=== PATIENT | female | born 1955 | race Caucasian/White ===

== ENCOUNTER 2017-07-15 10:55 | Outpatient (CLI) | payer BC | END 2017-07-15 10:56 | disposition home or self-care (01) | LOC: BICMAMMO 10:55 | PROVIDERS: ATTEND Nurse Practitioner Family | DX: Z12.31 Encounter for screening mammogram for malignant neoplasm of breast (principal); Z80.3 Family history of malignant neoplasm of breast | CPT/HCPCS: 77063; 77067 ==

== ENCOUNTER 2018-05-02 12:30 | Outpatient (CLI) | payer BC ==
--- NOTE | 2018-05-02 13:34 | CT ---
CT BRAIN WITH AND WITHOUT IV CONTRAST: HISTORY: Dysphonia. Slurred speech. COMPARISON: Noncontrasted exam from 05/29/2013. FINDINGS: An old lacunar infarction at the inferior aspect of the left basal ganglia is again seen. No evidenc e of acute infarct, hemorrhage, mass, midline shift, or abnormal extraaxial fluid collections is seen . The ventricular size is normal, and the basilar cisterns are patent. No abnormal post contrast en hancement is noted. The bony calvarium is intact. The visualized paranasal sinuses and mastoid air cells are well aerated. IMPRESSION: No CT evidence of acute intracranial process or mass. POS: OFF
[2018-05-02] MEDS ORDERED: ISOVUE-370 76%-LOCM 1 ML ONE (13:44)
== END 2018-05-02 12:31 | disposition home or self-care (01) ==
LOC: CT 12:30 → BICCT 12:31
PROVIDERS: ATTEND Specialist
DX: R49.0 Dysphonia (principal)
CPT/HCPCS: 70470; Q9966

== ENCOUNTER 2018-06-12 10:51 | Observation (INO) | payer BC ==
[2018-06-12 11:56] VITALS: BMI 36.2
[2018-06-12 12:11] LABS: #Eosinphils 0.2 thou/uL (0.0-0.7); #Lymphocytes 1.9 thou/uL (1.20-3.40); #Monocytes 0.4 thou/uL (0.11-0.59); #Neutrophils 4.8 thou/uL (1.40-6.50); %Basophils 0.3 % (0.0-1.0); %Eosinophils 2.6 % (0.0-10.0); %Lymphocytes 25.7 % (21.0-51.0); %Neutrophils 65.4 % (42.0-75.0); Mean Corpuscular HGB CONC 32.4 g/dL (32.0-36.0); Mean Corpuscular Hemoglobin 28.6 pg (27.0-31.0); Mean Corpuscular Volume 88.3 fL (78.0-98.0); Mean Platelet Volume 7.7 fL (7.4-10.4); Platelet Count 299 thou/uL (130-400); RBC Distribution Width 12.9 % (11.5-14.5); White Blood Cell (WBC) Count 7.4 thou/uL (4.8-10.8)
[2018-06-12] MEDS ORDERED: Aspirin Chewable 81 MG TAB PO SCH (12:45)
[2018-06-12 12:46] LABS: ALT (SGPT) 19 U/L (8-55); AST (SGOT) 24 U/L (5-34); Albumin 4.1 g/dL (3.4-4.8); Alkaline Phosphatase 83 U/L (40-150); Anion Gap 14 mmol/L (10-20); BUN (Urea Nitrogen) 15 mg/dL (9.8-20.1); Bilirubin, Total 0.4 mg/dL (0.2-1.2); Calc. Creatinine Clearance 105 mL/min (70-130); Calcium 9.5 mg/dL (7.8-10.44); Carbon Dioxide 24 mmol/L (23-31); Chloride 103 mmol/L (98-107); Estimated GFR-MDRD 75; Globulin 2.6 g/dL (2.4-3.5); Glucose 102 mg/dL (80-115); Potassium 4.2 mmol/L (3.5-5.1); Protein, Total 6.7 g/dL (6.0-8.3); Sodium 137 mmol/L (136-145)
[2018-06-12] MEDS ORDERED: Nitroglycerin 0.4 MG TAB (25 Tab Bottle) SL PRN (12:46)
--- NOTE | 2018-06-12 13:04 | RAD ---
2 views of chest: 06/12/2018 Comparison none HISTORY: Angina FINDINGS: No pneumothorax or pleural fluid. No focal consolidation or alveolar edema. Heart and media stinal contours appear unremarkable. Clips in right upper quadrant suggest prior cholecystectomy IMPRESSION: No acute findings.
[2018-06-12 14:33] LABS: Bilirubin Negative (Negative); Blood, Urine Negative (Negative); Clarity CLEAR (Clear); Glucose, Urine (Dipstick) Negative (Negative); Leukocyte Negative (Negative); Nitrite Negative (Negative); Protein, Urine (Dipstick) Negative (Neg-Trace); Specific Gravity, Urine 1.006 (1.002-1.036); Urobilinogen 0.2 mg/dL (0.2-1.0); pH, Urine 5.5 (5.0-9.0)
[2018-06-12 14:39] LABS: Bacteria/HPF None Seen HPF (None Seen); Hyaline Casts/LPF 0-3 HYALINE CAST LPF (0-3 Hyaline); RBC/HPF 0-3 HPF (0-3); Squamous Epithelial None Seen HPF (0-3); WBC/HPF None Seen HPF (0-3)
[2018-06-12 14:42] LABS: Urine Culture Reflex No No
[2018-06-12 16:03] LABS: Troponin I Less than 0.010 ng/mL (< 0.028)
[2018-06-12 18:22] LABS: Troponin I Less than 0.010 ng/mL (< 0.028)
[2018-06-12] MEDS: Atorvastatin Calcium 10 MG TAB PO SCH (20:49)
[2018-06-12] MEDS: cloNIDine 0.1 MG TAB PO SCH (20:49)
[2018-06-12] MEDS: Temazepam 15 MG CAP PO SCH (20:49)
--- NOTE | 2018-06-13 02:23 | HP ---
CHIEF COMPLAINT ON ADMISSION: Unstable angina. HISTORY OF PRESENT ILLNESS: The patient is a 63-year-old female, who came into Dr. Rose' office on the day of admission stating that she has had numerous episodes of chest pain lasting for 15-20 minutes each. Three episodes occurred in the evening prior to admission and one on the morning of admission, these self-resolved after she would rest. She will be doing light housework when they would occur. The pain would radiate into the right side of her jaw at which point, she will become short-winded, mildly diaphoretic, nauseated, but did not vomit. Her risk factors include hyperlipidemia, previous history of CVA, and pontine lacunar stroke. She had no fever or upper respiratory symptoms. No cough. Because of the classical nature of the presentation, it was elected to put her in the hospital for further testing. PAST MEDICAL HISTORY: Significant for hypothyroidism, dyslipidemia, prior CVA in 2014, insomnia, morbid obesity, hypertension, GERD, vitamin D deficiency and osteoporosis. PAST SURGICAL HISTORY: Includes gastric bypass in 2004, cholecystectomy, open reduction and internal fixation of the right elbow. PAST PSYCHIATRIC HISTORY: Significant for depression. FAMILY HISTORY: Significant for high blood pressure, kidney and colon cancer, and stroke. ALLERGIES: THE PATIENT HAS NO KNOWN DRUG ALLERGIES. MEDICATIONS: On admission include: 1. Zoloft 50 mg daily. 2. Levothyroxine 75 mcg daily. 3. Zocor 20 mg at bedtime. 4. Temazepam 50 mg at bedtime. 5. Clonidine 0.1 mg b.i.d. SOCIAL HISTORY: She is . She had been a previous smoker and has quit 10-15 years ago. She drinks alcohol socially. Denies illicit drug use. REVIEW OF SYSTEMS: At the time of admission: CONSTITUTIONAL: Denies any chills, fever, or general malaise. HEENT: Denies drainage or sores from ears, nose, or throat. CHEST: Denies current dyspnea or coughing. CARDIOVASCULAR: Admits to chest pain as reason for admission. Denies palpitations. GI: Has had nausea, but no vomiting. No diarrhea. : Denies blood in urine or stool or painful urination. MUSCULOSKELETAL: Denies any new joint pain or muscle pain. SKIN: No new rashes or lesions. NEUROLOGIC: No headaches, blurred vision, or trouble with mentation. PSYCHIATRIC: Currently stable with antidepressants. PHYSICAL EXAMINATION: At the time of admission, VITAL SIGNS: Blood pressure 134/92, pulse is 69, respirations 18, temperature 97.6, O2 saturation 96% on room air. She weighs 198 pounds. GENERAL: This is a well-developed, mildly obese female, alert, oriented, and cooperative. HEENT: Normocephalic, atraumatic. Pupils equal, reactive to light at 3-4 mm. Arcus senilis bilaterally. TMs, nares, and pharynx are clear. Membranes moist. NECK: Supple. Trachea midline. No mass. No bruits. BREASTS: Deferred. CHEST: Clear to auscultation. HEART: Irregular rate and irregular rhythm. No murmur. ABDOMEN: Obese. Unable to appreciate organomegaly, nontender. : Deferred. EXTREMITIES: Without clubbing or cyanosis. 1+ edema in the lower extremities. Normal range of motion present. Symmetrical muscular tone development noted. SKIN: No rashes or lesions. NEUROLOGIC: Cranial nerves are intact. Gait normal. Sensory exam is intact. Mentation is generally slow somewhat, but logical and goal directed. No hallucinations or delusions. LABORATORY DATA: Lab work on admission; WBC 7.4, hemoglobin 12, hematocrit 37, and platelets 299. Sodium 137, potassium 4.2, chloride 103, CO2 of 24, BUN 15, creatinine 0.77 with a GFR 75, glucose 102. Liver functions unremarkable. BNP 10.2. Troponins screen is negative x3. Urinalysis is entirely normal. Chest x-ray shows no acute finding. ASSESSMENT: 1. Angina with unstable features. 2. Risk factors include hyperlipidemia, hypertension, obesity, and distant history of smoking. 3. Dyslipidemia. 4. Hypertension. PLAN: Cardiolite stress test with reflex, followup nuclear med study for any ischemia. Should these prove positive for ischemia, Cardiology consult will be sought. In the meantime, she will be placed on daily aspirin, O2 p.r.n., nitrates p.r.n., and serial re-evaluation. Job ID: [id number]
[2018-06-13] MEDS: Levothyroxine Sodium 75 MCG TAB PO SCH (04:11)
[2018-06-13] MEDS: Aspirin Chewable 81 MG TAB PO SCH (11:50)
[2018-06-13] MEDS: Carvedilol 3.125 MG TAB PO SCH ×2 (11:50→21:40)
[2018-06-13] MEDS: cloNIDine 0.1 MG TAB PO SCH ×2 (11:51→21:40)
--- NOTE | 2018-06-13 11:59 | NM ---
MYOCARDIAL PERFUSION SCAN WITH SPECT IMAGING: History: Chest pain. Examination was performed using 31 mCi Technetium 99M Sestamibi on the stress and 29.5 mCi Technetium 99M Sestamibi on the resting images. FINDINGS: There is a fairly normal distribution of radiopharmaceutical. No signs of ischemia or scar. Wall Motion: Symmetric contractility to the ventricle. Left Ventricular Ejection Fraction: Calculated left ventricular ejection fraction is 84%. Please george elate with echocardiogram. IMPRESSION: Unremarkable myocardial perfusion scan. POS: [email or web address]
[2018-06-13] MEDS: Atorvastatin Calcium 10 MG TAB PO SCH (21:40)
[2018-06-13] MEDS: Temazepam 15 MG CAP PO SCH (21:41)
[2018-06-14] MEDS: Levothyroxine Sodium 75 MCG TAB PO SCH (06:09)
[2018-06-14] MEDS: Carvedilol 3.125 MG TAB PO SCH (08:36)
[2018-06-14] MEDS: cloNIDine 0.1 MG TAB PO SCH (08:36)
[2018-06-14] MEDS: Aspirin Chewable 81 MG TAB PO SCH (08:36)
[2018-06-14 12:44] VITALS: BP 131/63; TEMP 97.6
== END 2018-06-14 15:41 | disposition home or self-care (01) ==
LOC: 2SW 10:51
PROVIDERS: ADMIT Specialist; ATTEND Specialist
DX: I20.9 Angina pectoris, unspecified (principal); E78.5 Hyperlipidemia, unspecified; E03.9 Hypothyroidism, unspecified; I10 Essential (primary) hypertension; K21.9 Gastro-esophageal reflux disease without esophagitis; E55.9 Vitamin D deficiency, unspecified; M81.0 Age-related osteoporosis without current pathological fracture; F32.9 Major depressive disorder, single episode, unspecified; G47.00 Insomnia, unspecified; E66.01 Morbid (severe) obesity due to excess calories; Z68.36 Body mass index [BMI] 36.0-36.9, adult; Z79.899 Other long term (current) drug therapy; Z86.73 Personal history of transient ischemic attack (TIA), and cerebral infarction without residual deficits; Z87.891 Personal history of nicotine dependence
CPT/HCPCS: 36415; 71046; 78452; 80053; 81001; 83880; 84484; 85025; 93005; 93010; 93017; 93306; A9500; G0378; G0379

== ENCOUNTER 2018-08-04 09:59 | Outpatient (CLI) | payer BC | END 2018-08-04 10:00 | disposition home or self-care (01) | PROVIDERS: ATTEND Internal Medicine Gastroenterology | DX: I69.391 Dysphagia following cerebral infarction (principal); R13.12 Dysphagia, oropharyngeal phase; K21.9 Gastro-esophageal reflux disease without esophagitis | CPT/HCPCS: 74230 ==

== ENCOUNTER 2018-08-11 08:56 | Outpatient (CLI) | payer BC ==
--- NOTE | 2018-08-11 10:54 | MRI ---
BRAIN MRI WITH AND WITHOUT CONTRAST: INDICATION: G46.4, CVA, persistent slurred speech. FINDINGS: There is no evidence of acute territorial infarction, intracranial mass effect, midline shift, or alethea triculomegaly. Mild chronic ischemic disease of the cerebral white matter is present. There is no h emorrhagic susceptibility or pathologic intraaxial enhancement. IMPRESSION: 1. No acute intracranial abnormalities. 2. Mild chronic ischemic disease of cerebral white matter. POS: C
[2018-08-11] MEDS ORDERED: Gadobenate Dimeglumine 529 MG/1 ML (20ML VIAL) ONE (12:28)
== END 2018-08-11 08:57 | disposition home or self-care (01) ==
LOC: BICMRI 08:56
PROVIDERS: ATTEND Specialist
DX: I63.9 Cerebral infarction, unspecified (principal); I67.82 Cerebral ischemia
CPT/HCPCS: 70553; 82565; A9577